=== PATIENT | male | born 1955 | race Caucasian/White ===

== ENCOUNTER 2024-09-20 10:41 | Observation (INO) | payer MEDICARE, SELFPAY ==
[2024-09-20] VITALS (22 sets, daily range): BP systolic 130–190; BP diastolic 64–97; PULSE 53–63; RESP 17–23; TEMP 36.5–36.7; O2SAT 94–99; BMI 32.1
--- NOTE | 2024-09-20 10:44 | DI.RAD.S_ITS ---
PROCEDURE: XR CHEST 1V INDICATIONS: Possible stroke TECHNIQUE: One view of the chest was acquired. COMPARISON: None. FINDINGS: Surgical changes and devices: None. Lungs and pleura: Lungs are clear. No pleural effusions or pneumothorax. Mediastinum: Mediastinal contours appear normal. Heart size is normal. Bones and chest wall: No suspicious bony lesions. Overlying soft tissues appear unremarkable. IMPRESSION: No acute cardiopulmonary abnormality is seen. Dictated by: Boris Pina M.D. on 09/20/2024 at 11:08 Approved by: Boris Pina M.D. on 09/20/2024 at 11:09
--- NOTE | 2024-09-20 10:44 | DI.CT.S_ITS ---
PROCEDURE: CT HEAD/BRAIN WO CON INDICATIONS: Positive BE-FAST, Stroke symptoms. Right sided weakness. TECHNIQUE: Noncontrast 4.5 mm thick angled axial sections acquired from the foramen magnum to the vertex, with coronal and sagittal reformats. For radiation dose reduction, the following was used: automated exposure control, adjustment of mA and/or kV according to patient size. COMPARISON: None. FINDINGS: Image quality: Diagnostic. CSF spaces: Basal cisterns are patent. No extra-axial fluid collections. The ventricles are symmetric in size and shape. Brain: Low-density area within the right frontal lobe. No intracranial bleeds or masses. There is cerebral volume loss for age, with resultant ventricular and sulcal prominence. There are periventricular and deep white matter chronic small vessel ischemic changes. There is intracranial internal carotid artery atherosclerosis. Skull and face: Calvarium and visualized facial bones appear intact, without suspicious lesions. Sinuses: Visualized sinuses and mastoids are clear. IMPRESSION: Low-density area within the right frontal lobe, subacute infarct is in the differential. Recommend MRI brain for further evaluation. Dictated by: Boris Pina M.D. on 09/20/2024 at 11:06 Approved by: Boris Pina M.D. on 09/20/2024 at 11:07
--- NOTE | 2024-09-20 10:51 | DI.CT.S_ITS ---
PROCEDURE: CT ANGIO HEAD AND NECK INDICATIONS: r/o stroke TECHNIQUE: After the administration of intravenous contrast, 1 mm thick sections acquired from the aortic arch through the [place]. 3-dimensional mxkenle-frexkncfh-ddgjkypide (MIP) and/or volume rendering reformats were acquired of the central intracranial vasculature and neck separately. For radiation dose reduction, the following was used: automated exposure control, adjustment of mA and/or kV according to patient size. COMPARISON: None. FINDINGS: Image quality: Diagnostic. BRAIN: Please refer to same day CT of the head. HEAD CT ANGIOGRAPHY: Anterior circulation: Intracranial internal carotid arteries are normal in size and flow. The flow within the paired anterior cerebral arteries is normal and symmetric. The flow within the middle cerebral arteries is normal and symmetric. The anterior communicating artery is seen. No aneurysms are seen. Posterior circulation: Visualized portions of the vertebral arteries demonstrate normal caliber with a dominant left vertebral artery, and join to form a normal appearing basilar artery. origin of the right BUYER RENTER. Flow within the posterior cerebral arteries is normal and symmetric. No aneurysms are seen. NECK CT ANGIOGRAPHY: Carotid system: The great vessels demonstrate a conventional anatomy as they arise from the aortic arch. The origins of the common carotid arteries appear patent. The common carotid arteries demonstrate normal caliber and courses. The bifurcation regions demonstrate atherosclerosis without significant stenosis. The internal carotid arteries demonstrate normal calibers and courses. Posterior circulation: Mild stenosis at the origin of the left vertebral artery. The left vertebral artery is dominant The more superior extracranial portions of both vertebral arteries also demonstrate normal courses. They join to form a normal appearing basilar artery. Soft tissues: Visualized neck soft tissues demonstrate no suspicious abnormalities. Bones: No suspicious bony lesions. Visualized cervical spine appears normally aligned. Degenerative changes of the spine. IMPRESSION: No significant intracranial arterial abnormality is seen. No significant abnormality is seen within the arteries of the neck. Any quantitative measurements of stenosis were performed using NASCET criteria. Dictated by: Boris Pina M.D. on 09/20/2024 at 12:04 Approved by: Boris Pina M.D. on 09/20/2024 at 12:10
--- NOTE | 2024-09-20 11:13 | PC.NURSE ---
Right hand pinky numbness/tingling that has now progressed up to his lip. No PRADO, vision changes, etc per pt. Pt ambulatory w/o assistance. GCS 15.
[2024-09-20 11:23] LABS: Basophils Absolute Auto 100 /uL (0-100); Basophils Percent Auto 1.6 % (0-2); Eosinophils Absolute Auto 100 /uL (0-450); Eosinophils Percent Auto 1.4 % (2-4); Hematocrit 43.9 % (41-53); Hemoglobin 14.8 g/dL (13.5-17.5); Lymphocytes Absolute Auto 2700 /uL (1100-4500); Lymphocytes Percent Auto 31.6 % (25-40); Mean Corpuscular HGB Conc 33.8 % (30-36); Mean Corpuscular Hemoglobin 30.2 PG (26-34); Mean Corpuscular Volume 89.5 fL (80-100); Monocytes Absolute Auto 600 /uL (0-900); Monocytes Percent Auto 6.8 % (3-14); Neutrophils Absolute Auto 5000 /uL (1500-7000); Neutrophils Percent Auto 58.6 % (50-75); Red Blood Cell Count 4.91 X10^6/uL (4.5-5.9); Red Cell Distribution Width 13.2 % (11.6-14.8); White Blood Cell Count 8.5 X10^3/uL (4.5-11.0)
[2024-09-20 11:24] LABS: Add Manual Diff / Slide Review SLIDE REVIEW
[2024-09-20 11:29] LABS: UR Morphine/Opiate cutoff 300 Negative (Negative); Ur Creatinine Normal (Normal); Ur Specific Gravity Normal (Normal); Urine Amphetamines Negative (Negative); Urine Barbiturates Negative (Negative); Urine Benzodiazepines Negative (Negative); Urine Cocaine Negative (Negative); Urine MDMA Negative (Negative); Urine Methadone Negative (Negative); Urine Methamphetamines Negative (Negative); Urine Oxycodone Negative (Negative); Urine Phencyclidine Negative (Negative); Urine Tetrahydrocannabinol Positive (Negative); Urine Tricyclic Antidepressant Negative (Negative); Urine pH Normal (Normal)
[2024-09-20 11:38] LABS: Platelet Count 193 X10^3/uL (150-400); Platelet Estimate Adequate on smear
--- NOTE | 2024-09-20 11:46 | EKG_ITS ---
[address] [address] Test Date: 2024-09-20 Pat Name: Trev Tiwari Department: 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
[2024-09-20 11:47] LABS: Bacteria Urine Many (>30); Culture Indicated Urine Specimen Cultured; RBC Urine 0-1/HPF (0-5/HPF); Squamous Epithelial Cell Urine 0-1 /HPF (0-5/HPF); Urine Volume 10mL (spun); WBC Urine 5-10/HPF (0-5/HPF)
[2024-09-20 12:01] LABS: Alanine Aminotransferase 28 IU/L (<50); Albumin 4.7 g/dL (3.5-5.0); Albumin Globulin Ratio 1.5 (1.0-2.8); Alkaline Phosphatase 76 U/L (38-126); Aspartate Aminotransferase 35 IU/L (17-59); Bilirubin Total 0.6 mg/dL (0.2-1.3); Blood Urea Nitrogen 18 mg/dL (9-20); Calcium 9.7 mg/dL (8.4-10.2); Carbon Dioxide 20 mmol/L (22-32); Chloride 108 mmol/L (98-107); Creatine Kinase 96 U/L (55-170); Estimated Glomerular Filt Rate > 60 mL/min (>60); Globulin 3.2 g/dL (1.7-4.1); Glucose 93 mg/dL (80-110); HEMOLYSIS < 15 (0-50); Magnesium 1.8 mg/dL (1.6-2.3); Potassium 4.1 mmol/L (3.4-5.1); Sodium 138 mmol/L (137-145); Total Protein 7.9 g/dL (6.3-8.2)
[2024-09-20 12:13] LABS: Troponin I < 0.012 ng/mL (0.01-0.034)
[2024-09-20 12:29] LABS: Prothrombin Time 11.1 SECONDS (9.4-12.5)
[2024-09-20 12:32] LABS: PTT Partial Thromboplastin Tim 33 SECONDS (25.1-36.5)
--- NOTE | 2024-09-20 13:44 | PC.NURSE ---
This RN checks on patient. He reports numbness and tingling to his RIGHT side of lip is subsiding as is some of the numbness/tingling to his RIGHT arm. However, Pt reports it is the same in his RIGHT three fingers (middle, ring and pinky). Pt describes them as feeling tight. Pt has multiple family members in room. Encouraged him to call if any changes or if family notices any changes. Call light within reach.
--- NOTE | 2024-09-20 14:10 | PC.NURSE ---
Family at bedside states patient is slurring his words. Friend at bedside said he noticed this yesterday while with him too.
--- NOTE | 2024-09-20 14:40 | PC.NURSE ---
Pt family reports increased slurring in speech. This RN does not currently appreciate a distinct difference in his speech pattern from prior. Speech is clear and coherent to this RN. Provider Fletcher made aware of patient family concerns.
--- NOTE | 2024-09-20 16:02 | ED_ITS ---
HPI - Neuro Symptoms/Deficit General Chief Complaint: Neuro Symptoms/Deficit Stated Complaint: R side numbness Time Seen by Provider: 09/20/24 15:06 Source: patient, EMS, RN notes reviewed and old records reviewed Mode of arrival: EMS Limitations: no limitations History of Present Illness HPI Narrative: 69-year-old male history of right partial nephrectomy for cancer, chronic tobacco use who presents with complaint of right hand numbness that was present yesterday morning when he woke up was extending up the arm has now localized more to the hand but is still present. He also noticed some right-sided facial numbness and tingling. States that has also improved. His brother notes a little bit change to his speech patient does not appreciate a change. Denies headache, denies any chest pain or shortness of breath. Denies any vision changes. Denies any issues with movement or gait. Does not appreciate a lot of supervisor intermediates or weakness in his extremity. Patient denies any nausea or vomiting. No other GI or urinary symptoms. States no daily medications. Has been told his cholesterol was high in the past. Has had a right partial nephrectomy for what sounds like renal cell carcinoma in 2017. Patient does smoke about pack daily, states no regular alcohol, does use marijuana denies any other recreational drugs[place] He is accompanied by several family members On Anticoagulants: No Related Data Home Medications Medication Instructions Recorded Confirmed No Known Home Medications 09/20/24 Allergies Allergy/AdvReac Type Severity Reaction Status Date / Time hydromorphone [From Dilaudid] Allergy Intermediate Verified 09/20/24 09:32 Review of Systems Review of Systems ROS Unobtainable: All systems reviewed & are unremarkable except as noted in HPI and below Hematologic/Lymphatic On Anticoagulants: No Patient History Social History Smoking Status: Current every day smoker Smoking Status: Current every day smoker alcohol intake frequency: other Substance Use Type: marijuana Exam Narrative Exam Narrative: GEN: well nourished, well appearing male, alert and oriented x 3, patient appears to be in mild distress. HEENT: Atraumatic, pupils are equal round reactive to light, extraocular movements are intact, nares are clear, TMs are clear with no fluid, there is no conjunctival pallor. Throat is clear without any exudates, erythema, tonsillar enlargement or uvular deviation, no facial droop HEART: Regular rate and rhythm without murmur, clicks, rubs. No carotid bruits, pulses are equal in upper and lower extremities LUNGS:Lungs clear to auscultation, no wheezes, rales, crackles, chest moves symmetrically ABD:bowel sounds normal, soft, non-tender, no guarding, rebound, rigidity, no masses noted, no hepatosplenomegaly :No CVA tenderness MSCL: Non-tender, no muscle atrophy, muscles strength 5/5 upper and lower extremities, full range of motion, normal gait NEURO:CN 2-12 intact, sensation normal except for decreased sensation right hand compared to left, reflexes 2/4 upper and lower extremities. finger nose finger test normal, heel frank test normal. Initial Vital Signs Initial Vital Signs: Vital Signs Pulse Rate 62 09/20/24 10:47 Pulse Oximetry 98 09/20/24 10:47 Scores NIH Stroke Scale Level of Conciousness: Alert, keenly responsive Ask month/age: Answers both questions correctly. Open/close eyes, close hand: Performs both tasks correctly Best gaze horizontal: Normal Visual whittaker: No visual loss Facial palsy: Normal symetrical movement Left arm drift: No drift for full 10 sec Right arm drift: No drift for full 10 sec Left leg drift: No drift for full 5 sec Right leg drift: No drift for full 5 sec Limb ataxia: Absent Sensory on face/arms/legs: Mild to moderate sensory loss, can tell touch Best language: No aphasia, normal Dysarthria: Normal Extinction or inattention: No abnormality Total NIH Stroke scale score: 1 Course Orders Ordered: ED Orders 09/20/24 10:44 CT head/brain wo con Stat XR chest 1V Stat EKG-12 Lead Stat 09/20/24 10:51 CT angio head and neck Stat 09/20/24 11:02 Complete Blood Count AUTO DIFF Stat 09/20/24 11:16 Urine Culture Stat Urine Drug Screen, Rapid Stat Urine Microscopic Stat 09/20/24 11:33 Comprehensive Metabolic Panel Stat Magnesium Stat Troponin & CK Cardiac Panel Stat 09/20/24 12:15 PTT Partial Thromboplastin Les Stat Prothrombin Time INR Stat 09/20/24 16:42 MR head/brain wo con Stat Ondansetron HCl (Ondansetron 4 Mg/2 Ml Inj) 4 mg IV NOW PRN PRN Reason: Nausea And Vomiting Ondansetron HCl (Ondansetron 4 Mg Odt) 4 mg SL NOW PRN PRN Reason: Nausea And Vomiting Sodium Chloride (Sodium Chloride 0.9% Flush) 10 ml IV PRN PRN PRN Reason: Flush Sodium Chloride (Sodium Chloride 0.9% Flush) 10 ml IV BID ELIZABETH Discontinued Medications Aspirin (Aspirin 81 Mg Chew Tab) 324 mg PO NOW ONE Stop: 09/20/24 16:37 Last Admin: 09/20/24 16:47 Dose: 324 mg Documented By: CARMEN Vital Signs Vital signs: Vital Signs - 8 hr 09/20/24 10:47 09/20/24 10:48 09/20/24 10:48 Temperature Pulse Rate 62 58 L Respiratory Rate Blood Pressure 190/84 H Pulse Oximetry 98 97 Oxygen Delivery Method 09/20/24 10:50 09/20/24 11:00 09/20/24 11:30 Temperature 98.0 F Pulse Rate 56 L 59 L 61 Respiratory Rate 18 Blood Pressure 190/84 H Pulse Oximetry 98 98 96 Oxygen Delivery Method Room Air 09/20/24 11:43 09/20/24 11:43 09/20/24 12:00 Temperature Pulse Rate 54 L 58 L Respiratory Rate 19 18 Blood Pressure 146/68 H Pulse Oximetry 99 99 Oxygen Delivery Method 09/20/24 12:30 09/20/24 13:00 09/20/24 13:30 Temperature Pulse Rate 60 57 L 62 Respiratory Rate 17 Blood Pressure Pulse Oximetry 97 99 95 Oxygen Delivery Method 09/20/24 13:43 09/20/24 13:43 09/20/24 14:00 Temperature Pulse Rate 62 Respiratory Rate 20 Blood Pressure 179/90 H 157/86 H Pulse Oximetry 98 Oxygen Delivery Method Room Air 09/20/24 14:00 09/20/24 14:30 09/20/24 14:33 Temperature Pulse Rate 61 60 62 Respiratory Rate 21 23 Blood Pressure Pulse Oximetry 96 99 98 Oxygen Delivery Method Room Air 09/20/24 14:33 09/20/24 15:00 09/20/24 15:00 Temperature Pulse Rate 55 L Respiratory Rate 17 Blood Pressure 171/87 H 146/70 H Pulse Oximetry 97 Oxygen Delivery Method 09/20/24 15:30 09/20/24 15:30 09/20/24 16:00 Temperature Pulse Rate 53 L Respiratory Rate 17 Blood Pressure 163/77 H 144/78 H Pulse Oximetry 96 Oxygen Delivery Method 09/20/24 16:00 09/20/24 16:30 09/20/24 16:31 Temperature Pulse Rate 60 60 61 Respiratory Rate 19 18 23 Blood Pressure Pulse Oximetry 95 94 94 Oxygen Delivery Method 09/20/24 16:31 09/20/24 16:38 09/20/24 16:38 Temperature Pulse Rate 63 Respiratory Rate 18 Blood Pressure 164/87 H 162/97 H Pulse Oximetry 97 Oxygen Delivery Method MDM - Neuro Symptoms/Deficit Lab Data 09/20/24 11:02 09/20/24 11:33 Labs: Lab Results 09/20/24 09/20/24 09/20/24 Range/Units 11:02 11:16 11:33 WBC 8.5 (4.5-11.0) X10^3/uL RBC 4.91 (4.5-5.9) X10^6/uL Hgb 14.8 (13.5-17.5) g/dL Hct 43.9 (41-53) % MCV 89.5 (80-100) fL MCH 30.2 (26-34) PG MCHC 33.8 (30-36) % RDW 13.2 (11.6-14.8) % Plt Count 193 (150-400) X10^3/uL Neut % (Auto) 58.6 (50-75) % Lymph % (Auto) 31.6 (25-40) % [place] % (Auto) 6.8 (3-14) % Eos % (Auto) 1.4 L (2-4) % Baso % (Auto) 1.6 (0-2) % Neut # (Auto) 5000 (2992-0201) /uL Lymph # (Auto) 2700 (0979-3488) /uL [place] # (Auto) 600 (0-900) /uL Eos # (Auto) 100 (0-450) /uL Baso # (Auto) 100 (0-100) /uL Platelet Estimate Adequate on smear RBC Morphology Not Reportable PT (9.4-12.5) SECONDS INR (0.9-1.3) APTT (25.1-36.5) SECONDS Sodium 138 (137-145) mmol/L Potassium 4.1 (3.4-5.1) mmol/L Chloride 108 H (98-107) mmol/L Carbon Dioxide 20 L (22-32) mmol/L BUN 18 (9-20) mg/dL Creatinine 0.82 (0.66-1.25) mg/dL Estimated GFR > 60 (>60) mL/min BUN/Creatinine Ratio 22.0 (6-22) Glucose 93 (80-110) mg/dL Calcium 9.7 (8.4-10.2) mg/dL Magnesium 1.8 (1.6-2.3) mg/dL Total Bilirubin 0.6 (0.2-1.3) mg/dL AST 35 (17-59) IU/L ALT 28 (<50) IU/L Alkaline Phosphatase 76 (38-126) U/L Total Creatine Kinase 96 (55-170) U/L Troponin I < 0.012 (0.01-0.034) ng/mL Total Protein 7.9 (6.3-8.2) g/dL Albumin 4.7 (3.5-5.0) g/dL Globulin 3.2 (1.7-4.1) g/dL Albumin/Globulin Ratio 1.5 (1.0-2.8) Urine RBC 0-1/hpf (0-5/HPF) Urine WBC 5-10/hpf H (0-5/HPF) Ur Squamous Epith Cells 0-1 /hpf (0-5/HPF) Urine Bacteria Many (>30) H (None) Ur Culture Indicated? Specimen cultured Vol Urine Centrifuged 10ml (spun) U Opiates 300ng/mL cut Negative (Negative) Ur Oxycodone Screen Negative (Negative) Urine Methadone Screen Negative (Negative) Ur Barbiturates Screen Negative (Negative) U Tricyclic Antidepress Negative (Negative) Ur Phencyclidine Scrn Negative (Negative) Ur Amphetamines Screen Negative (Negative) U Methamphetamines Scrn Negative (Negative) Ur MDMA Scrn (Ecstasy) Negative (Negative) U Benzodiazepines Scrn Negative (Negative) Urine Cocaine Screen Negative (Negative) U Marijuana (THC) Screen Positive H (Negative) Urine pH Normal (Normal) Urine Specific George Normal (Normal) Ur Creatinine Normal (Normal) 09/20/24 Range/Units 12:15 WBC (4.5-11.0) X10^3/uL RBC (4.5-5.9) X10^6/uL Hgb (13.5-17.5) g/dL Hct (41-53) % MCV (80-100) fL MCH (26-34) PG MCHC (30-36) % RDW (11.6-14.8) % Plt Count (150-400) X10^3/uL Neut % (Auto) (50-75) % Lymph % (Auto) (25-40) % [place] % (Auto) (3-14) % Eos % (Auto) (2-4) % Baso % (Auto) (0-2) % Neut # (Auto) (5468-4271) /uL Lymph # (Auto) (6414-4021) /uL [place] # (Auto) (0-900) /uL Eos # (Auto) (0-450) /uL Baso # (Auto) (0-100) /uL Platelet Estimate RBC Morphology PT 11.1 (9.4-12.5) SECONDS INR 1.0 (0.9-1.3) APTT 33 (25.1-36.5) SECONDS Sodium (137-145) mmol/L Potassium (3.4-5.1) mmol/L Chloride (98-107) mmol/L Carbon Dioxide (22-32) mmol/L BUN (9-20) mg/dL Creatinine (0.66-1.25) mg/dL Estimated GFR (>60) mL/min BUN/Creatinine Ratio (6-22) Glucose (80-110) mg/dL Calcium (8.4-10.2) mg/dL Magnesium (1.6-2.3) mg/dL Total Bilirubin (0.2-1.3) mg/dL AST (17-59) IU/L ALT (<50) IU/L Alkaline Phosphatase (38-126) U/L Total Creatine Kinase (55-170) U/L Troponin I (0.01-0.034) ng/mL Total Protein (6.3-8.2) g/dL Albumin (3.5-5.0) g/dL Globulin (1.7-4.1) g/dL Albumin/Globulin Ratio (1.0-2.8) Urine RBC (0-5/HPF) Urine WBC (0-5/HPF) Ur Squamous Epith Cells (0-5/HPF) Urine Bacteria (None) Ur Culture Indicated? Vol Urine Centrifuged U Opiates 300ng/mL cut (Negative) Ur Oxycodone Screen (Negative) Urine Methadone Screen (Negative) Ur Barbiturates Screen (Negative) U Tricyclic Antidepress (Negative) Ur Phencyclidine Scrn (Negative) Ur Amphetamines Screen (Negative) U Methamphetamines Scrn (Negative) Ur MDMA Scrn (Ecstasy) (Negative) U Benzodiazepines Scrn (Negative) Urine Cocaine Screen (Negative) U Marijuana (THC) Screen (Negative) Urine pH (Normal) Urine Specific George (Normal) Ur Creatinine (Normal) Point of Care Testing Glucose POC 94 Urine Dip Bedside Urine Glucose Negative Bedside Urine Bilirubin - Negative Bedside Urine Ketone - Negative Urine Specific George 1.005 Bedside Urine Occult Blood - Negative Bedside Urine pH 6.5 Bedside Urine Protein - Negative Bedside Urine Urobilinogen - Negative Bedside Urine Nitrite + Positive Bedside Urine Leukocytes +/- [address] scan - head: Radiologist's Impression: [address] [address] [address] Scan Report Signed Patient: Trev Tiwari MR#: [id number] : 1955 Acct:[id number] Age/Sex: 69 / M Date of Service: 09/20/24 Loc: ED Accession Number: [id number] Procedure: CT head/brain wo con Ordering Provider: Kimberly Bynum D.O. PROCEDURE: CT HEAD/BRAIN WO CON INDICATIONS: Positive BE-FAST, Stroke symptoms. Right sided weakness. TECHNIQUE: Noncontrast 4.5 mm thick angled axial sections acquired from the foramen magnum to the vertex, with coronal and sagittal reformats. For radiation dose reduction, the following was used: automated exposure control, adjustment of mA and/or kV according to patient size. COMPARISON: None. FINDINGS: Image quality: Diagnostic. CSF spaces: Basal cisterns are patent. No extra-axial fluid collections. The ventricles are symmetric in size and shape. Brain: Low-density area within the right frontal lobe. No intracranial bleeds or masses. There is cerebral volume loss for age, with resultant ventricular and sulcal prominence. There are periventricular and deep white matter chronic small vessel ischemic changes. There is intracranial internal carotid artery atherosclerosis. Skull and face: Calvarium and visualized facial bones appear intact, without suspicious lesions. Sinuses: Visualized sinuses and mastoids are clear. IMPRESSION: Low-density area within the right frontal lobe, subacute infarct is in the differential. Recommend MRI brain for further evaluation. Dictated by: Boris Pina M.D. on 09/20/2024 at 11:06 Approved by: Boris Pina M.D. on 09/20/2024 at 11:07 CTA - brain/neck: Radiologist's Impression: Trev Tiwari??69??M??1955 ? Allergy/Adv: hydromorphone Close Head/Neck CTA (Signed) Boris Pina 09/20/[address] (Signed) Boris Pina 09/20/24 Chest X-Ray (Signed) Silvana09/20/24 [place] [address] CT Scan Report Signed Patient: Trev Tiwari MR#: [id number] : 1955 Acct:[id number] Age/Sex: 69 / M Date of Service: 09/20/24 Loc: ED Accession Number: [id number] Procedure: CT angio head and neck Ordering Provider: Kimberly Bynum D.O. PROCEDURE: CT ANGIO HEAD AND NECK INDICATIONS: r/o stroke TECHNIQUE: After the administration of intravenous contrast, 1 mm thick sections acquired from the aortic arch through the [place] of [place]. 3-dimensional maifgxk-xocmnpklb-ewoykxbqai (MIP) and/or volume rendering reformats were acquired of the central intracranial vasculature and neck separately. For radiation dose reduction, the following was used: automated exposure control, adjustment of mA and/or kV according to patient size. COMPARISON: None. FINDINGS: Image quality: Diagnostic. BRAIN: Please refer to same day CT of the head. HEAD CT ANGIOGRAPHY: Anterior circulation: Intracranial internal carotid arteries are normal in size and flow. The flow within the paired anterior cerebral arteries is normal and symmetric. The flow within the middle cerebral arteries is normal and symmetric. The anterior communicating artery is seen. No aneurysms are seen. Posterior circulation: Visualized portions of the vertebral arteries demonstrate normal caliber with a dominant left vertebral artery, and join to form a normal appearing basilar artery. origin of the right ENTRY LEVEL FINANCE. Flow within the posterior cerebral arteries is normal and symmetric. No aneurysms are seen. NECK CT ANGIOGRAPHY: Carotid system: The great vessels demonstrate a conventional anatomy as they arise from the aortic arch. The origins of the common carotid arteries appear patent. The common carotid arteries demonstrate normal caliber and courses. The bifurcation regions demonstrate atherosclerosis without significant stenosis. The internal carotid arteries demonstrate normal calibers and courses. Posterior circulation: Mild stenosis at the origin of the left vertebral artery. The left vertebral artery is dominant The more superior extracranial portions of both vertebral arteries also demonstrate normal courses. They join to form a normal appearing basilar artery. Soft tissues: Visualized neck soft tissues demonstrate no suspicious abnormalities. Bones: No suspicious bony lesions. Visualized cervical spine appears normally aligned. Degenerative changes of the spine. IMPRESSION: No significant intracranial arterial abnormality is seen. No significant abnormality is seen within the arteries of the neck. Any quantitative measurements of stenosis were performed using NASCET criteria. Dictated by: Boris Pina M.D. on 09/20/2024 at 12:04 Approved by: Boris Pina M.D. on 09/20/2024 at 12:10 Chest x-ray: Radiologist's Impression: [place] [address] XRay Report Signed Patient: Trev Tiwari MR#: [id number] : 1955 Acct:[id number] Age/Sex: 69 / M Date of Service: 09/20/24 Loc: ED Accession Number: [id number] Procedure: XR chest 1V Ordering Provider: Kimberly Bynum D.O. PROCEDURE: XR CHEST 1V INDICATIONS: Possible stroke TECHNIQUE: One view of the chest was acquired. COMPARISON: None. FINDINGS: Surgical changes and devices: None. Lungs and pleura: Lungs are clear. No pleural effusions or pneumothorax. Mediastinum: Mediastinal contours appear normal. Heart size is normal. Bones and chest wall: No suspicious bony lesions. Overlying soft tissues appear unremarkable. IMPRESSION: No acute cardiopulmonary abnormality is seen. Dictated by: Boris Pina M.D. on 09/20/2024 at 11:08 Approved by: Boris iPna M.D. on 09/20/2024 at 11:09 ECG Data Attestation: I personally reviewed and interpreted this ECG as follows: Interpretation: Sinus bradycardia rate of 56 MS 186 QRS 86 QTC of 386, T-wave inverted in lead 3 but no other acute ST changes. MDM Narrative Medical decision making narrative: 69-year-old male at 9:00 a.m. yesterday upon awakening had right numbness of his upper extremity continued for the past 24 hours and moved to his right lip. Did not note a little bit of facial droop at some point per transport. Patient has not NIH of 1 with persistent symptoms since yesterday. Patient was not candidate for anticoagulation is had greater than 24 hours of symptoms prior to arrival. Head CT shows possible subacute infarct in the right frontal lobe Head and neck CT angio shows no significant intracranial abnormality or of the arteries of the neck. Chest x-ray shows no acute change EKG shows sinus bradycardia CBC is normal, coags are negative, electrolytes are appropriate chloride 108 CO2 is 20 BUN 18 with a creatinine of 0.82 Mag is 1.8 LFTs are negative troponins less than 0.012 Urine micro 5-10 white cells, many bacteria 1 squamous, 1 RBC. UDS is positive for marijuana Patient given aspirin [address] De La Cruz, hospitalist accepts for observation. Patient has changes possible subacute infarct right frontal lobe although patient's symptoms are his right hand and cheek although hand dizzy only current symptom. Stroke Core Measures Exclusion Criteria TPA in CVA: Symptom Onset >3 or 4.5 Hours Discharge Plan Departure Patient Disposition: Admitted as Observation Clinical Impression: Cerebrovascular accident Admit Date/Time: 09/20/24 16:42 Admit Provider: Roshan De La Cruz
[2024-09-20] MEDS: ASPIRIN 81 MG CHEW TAB 324 MG PO (16:47)
--- NOTE | 2024-09-20 17:31 | PC.NURSE ---
Patient arrived to room 219 from ER via wheelchair. Oriented to room and call light and patient would like to sit in chair for dinner, he is hungry. Reports right hand middle ring and pinky fingers feel tight, sensation is dulled to right arm. Denies sensation changes elsewhere at this time. Patient has multiple family member including his 2 grandsons at the bed side.
--- NOTE | 2024-09-20 18:49 | DI.ECHO.S_ITS ---
[facility] +---------+ [facility] : : [address] : : [place] : : [address] : : Phone: [phone] Echocardiogram Report + + :Name: DONN BALDWIN Study Date: 09/21/2024 Height: 67 in : :[facility] ReadingLocation: Weight: 205 lb : : Gender: Male BSA: 2.0 m2 : :: 1955 Age: 69 yrs BP: 125/66 mmHg: :Reason For Study: CVA : :Ordering Physician: STEPH, : :FARIDA CHAMPAGNE Performed By: Colleen Singer : :Referring: FARIDA CHOI : + + Interpretation Summary Sinus bradycardia with heart rate 51-60 bpm. Borderline dilated left ventricle with normal wall thickness. Normal wall motion and LV systolic function. Ejection fraction is 50-55%. Stage I diastolic dysfunction. Mildly dilated right ventricle with normal right ventricular systolic function. Moderate left atrial enlargement; otherwise normal chamber sizes. Aortic sclerosis without stenosis. Otherwise, no significant valvular abnormalities. PFO evaluation is characterized by technically difficult bubble visualization. No obvious evidence of PFO based on available images. No source of embolism found. No prior study available for comparison. Procedure: A two-dimensional transthoracic echocardiogram with color flow and Doppler was performed. The study quality was technically adequate. There is no prior echocardiogram noted for this patient. The patient was in sinus bradycardia with heart rates between 51-66 bpm during the exam. Left Ventricle: The left ventricle is borderline dilated. The ejection fraction is estimated to be 55-60%. Right Ventricle: The right ventricle is mildly dilated. The right ventricular systolic function is normal. Atria: The left atrium is moderately dilated. Right atrial size is normal. There is no Doppler evidence for an interatrial shunt. Injection of contrast documented no interatrial shunt. Mitral Valve: The mitral valve is normal in structure and function. There is mild mitral regurgitation. Aortic Valve: The aortic valve is trileaflet. The aortic valve opens well. There is no aortic valve stenosis. No aortic regurgitation is present. Tricuspid Valve: The tricuspid valve is normal in structure and function. There is mild tricuspid regurgitation. The right ventricular systolic pressure is estimated to be at least 29 mmHg based on an estimated right atrial pressure of 3 mm Hg. Pulmonic Valve: The pulmonic valve leaflets are thin and pliable; valve motion is normal. There is no pulmonic valvular regurgitation. Great Vessels: The aortic root is normal size. The dimensions of the ascending aorta are normal. The IVC is of normal diameter and collapses greater than 50% with a sniff. This suggests a low right atrial pressure of 3 mm Hg. Pericardium/ Pleura There is no pericardial effusion. There is no pleural effusion. MMode/2D Measurements & Calculations LVIDd: 6.2 cm LVOT diam: 2.0 cm LVIDs: 4.4 cm Ao root diam: 3.5 cm FS: 29.1 % asc Aorta Diam: 3.3 cm EPSS: 0.60 cm IVSd: 0.81 cm LVPWd: 0.90 cm LV black. diameter/BSA (cm/m^2): 3.1 LV sys. diameter/BSA (cm/m^2): 2.2 LA A2 area: 28.2 cm2 RA long axis: 5.0 cm LA A4 area: 19.2 cm2 RA area: 18.5 cm2 LA length (vol): 5.2 cm RA vol: 58.6 ml LA vol: 88.7 ml RA : 28.7 ml/m2 LA vol index: 43.4 ml/m2 IVC diam: 2.0 cm RVD1 (basal): 4.0 cm RVD2 (mid): 3.5 cm TAPSE: 2.1 cm Doppler Measurements & Calculations Ao V2 max: 199.8 cm/sec LVOT Max Sunny: 111.5 cm/sec Ao V2 mean: 132.3 cm/sec LV V1 max P.0 mmHg Ao max P.0 mmHg LV V1 VTI: 24.8 cm Ao mean P.9 mmHg MARYANNE(I,D): 1.8 cm2 Ao V2 VTI: 43.8 cm MARYANNE(V,D): 1.7 cm2 sev ratio: 0.57 MARYANNE indexed to BSA (cm^2/m^2): 0.86 MV E max sunny: 70.5 cm/sec TR max sunny: 253.1 cm/sec MV A max sunny: 93.9 cm/sec TR max P.6 mmHg MV E/A: 0.75 PA V2 max: 135.2 cm/sec Med Peak E' Sunny: 8.5 cm/sec PA V2 mean: 99.4 cm/sec E/E' med: 8.3 PA mean P.3 mmHg Lat Peak E' Sunny: 9.2 cm/sec PA pr(Accel): 25.9 mmHg E/E' lat: 7.7 E/e' average: 8.0 MV dec time: 0.28 sec SV(LVOT): 76.8 ml Electronically signed by: Naheed rivera [place] Physician:09/21/2024 02:28 PM
--- NOTE | 2024-09-20 18:53 | PM.HP.1 ---
History of Present Illness History of Present Illness Date Patient Seen: 09/20/24 Time Patient Seen: 18:53 Chief complaint: R side numbness Narrative: 69 M with no known PMH except for tobacco use presents with R hand and arm numbness starting yesterday morning at approx. 9 am. The numbness started in his R 4th and 5th fingers, then moved to his whole hand and then distal forearm up to the elbow. He reports mild improvement today but now R hand is numb. His son reports that another family member thought his speech may be slurred, though patient did not think so. Son reports no facial asymmetry as does patient. No recent fever, chills, chest pain, rash, palpitations, vision changes, lower extremity numbness / weakness or left arm symptoms. He denies losing any strength in his R arm/hand. He is left handed. He was previously evaluated for carpal tunnel in both hands, denies hand or wrist pain recently. He had trigger finger surgery about 4 years ago. In the ER, he was mildly hypertensive. His labs were unremarkable. UA did show 5-10 wbc and many bacteria, but he denied urinary frequency or dysuria. UDS was positive for marijuana. Patient endorses smoking 1ppd currently. Head CT showed a possible hypodensity in the R frontal lobe, CTA was unremarkable. He was admitted for further evaluation and possible CVA. [facility] Medical History (Updated 09/20/24 @ 21:53 by Roshan De La Cruz DO) Trigger finger of both hands Surgical History (Updated 09/20/24 @ 21:53 by Roshan De La Cruz DO) H/O hand surgery Social History household members: none Smoking Status: Current every day smoker Meds Home Medications and Allergies Home Medications Medication Instructions Recorded Confirmed Type No Known Home Medications 09/20/24 09/20/24 History Allergies Allergy/AdvReac Type Severity Reaction Status Date / Time hydromorphone [From Dilaudid] Allergy Intermediate Verified 09/20/24 09:32 Review of Systems Review of Systems Narrative: All other systems reviewed with the patient and are negative unless otherwise stated. Exam Vital Signs (past 8 hours): - 09/20/24 11:00 09/20/24 11:30 09/20/24 11:43 Pulse Rate 59 L 61 54 L Respiratory Rate 19 Blood Pressure Pulse Oximetry 98 96 99 Oxygen Delivery Method Oxygen Flow Rate 09/20/24 11:43 09/20/24 12:00 09/20/24 12:30 Pulse Rate 58 L 60 Respiratory Rate 18 Blood Pressure 146/68 H Pulse Oximetry 99 97 Oxygen Delivery Method Oxygen Flow Rate 09/20/24 13:00 09/20/24 13:30 09/20/24 13:43 Pulse Rate 57 L 62 Respiratory Rate 17 Blood Pressure 179/90 H Pulse Oximetry 99 95 Oxygen Delivery Method Oxygen Flow Rate 09/20/24 13:43 09/20/24 14:00 09/20/24 14:00 Pulse Rate 62 61 Respiratory Rate 20 21 Blood Pressure 157/86 H Pulse Oximetry 98 96 Oxygen Delivery Method Room Air Room Air Oxygen Flow Rate 09/20/24 14:30 09/20/24 14:33 09/20/24 14:33 Pulse Rate 60 62 Respiratory Rate 23 Blood Pressure 171/87 H Pulse Oximetry 99 98 Oxygen Delivery Method Oxygen Flow Rate 09/20/24 15:00 09/20/24 15:00 09/20/24 15:30 Pulse Rate 55 L Respiratory Rate 17 Blood Pressure 146/70 H 163/77 H Pulse Oximetry 97 Oxygen Delivery Method Oxygen Flow Rate 09/20/24 15:30 09/20/24 16:00 09/20/24 16:00 Pulse Rate 53 L 60 Respiratory Rate 17 19 Blood Pressure 144/78 H Pulse Oximetry 96 95 Oxygen Delivery Method Oxygen Flow Rate 09/20/24 16:30 09/20/24 16:31 09/20/24 16:31 Pulse Rate 60 61 Respiratory Rate 18 23 Blood Pressure 164/87 H Pulse Oximetry 94 94 Oxygen Delivery Method Oxygen Flow Rate 09/20/24 16:38 09/20/24 16:38 09/20/24 17:26 Pulse Rate 63 60 Respiratory Rate 18 18 Blood Pressure 162/97 H 158/76 H Pulse Oximetry 97 97 Oxygen Delivery Method Oxygen Flow Rate 0 Oxygen Delivery Method Room Air Oxygen Flow Rate 0 Narrative Exam Narrative: General:? Patient is well developed and well nourished, in no distress at this time. HEENT:? Normocephalic, atraumatic, extraocular muscles intact, oral pharynx is clear and mucous membranes are moist. Neck: supple and symmetric, trachea is midline, no cervical adenopathy. Negative for JVD Chest:? Normal AP diameter and contour without kyphoscoliosis, no tachypnea, equal chest rise bilaterally. Cardio:?RRR Abdomen: S NT ND. Musculoskeletal:? Muscle strength and tone are equal within normal limits, no deformity. Negative tinel testing on R wrist. No lateral epicondyle tenderness, minimal medial epicondyle tenderness. Extremities: No edema or joint effusions. No cyanosis or clubbing. Skin:? Pale,? Warm to touch,dry and intact without rashes, ulcerations or petechiae.? Neuro:? Alert and orientated x3,? sensation to touch intact in all extremities, no gross deficits noted of cranial nerves. Psych:? Patient has a well-kept appearance, appropriate affect, mental status attitude thought context and judgment are appropriate for age. Objective Labs 09/20/24 11:02 09/20/24 11:33 Labs: Laboratory Results - last 24 hr 09/20/24 09/20/24 09/20/24 11:02 11:16 11:33 WBC 8.5 RBC 4.91 Hgb 14.8 Hct 43.9 MCV 89.5 MCH 30.2 MCHC 33.8 RDW 13.2 Plt Count 193 Neut % (Auto) 58.6 Lymph % (Auto) 31.6 [place] % (Auto) 6.8 Eos % (Auto) 1.4 L Baso % (Auto) 1.6 Neut # (Auto) 5000 Lymph # (Auto) 2700 [place] # (Auto) 600 Eos # (Auto) 100 Baso # (Auto) 100 Platelet Estimate Adequate on smear RBC Morphology Not Reportable PT INR APTT Sodium 138 Potassium 4.1 Chloride 108 H Carbon Dioxide 20 L BUN 18 Creatinine 0.82 Estimated GFR > 60 BUN/Creatinine Ratio 22.0 Glucose 93 Calcium 9.7 Magnesium 1.8 Total Bilirubin 0.6 AST 35 ALT 28 Alkaline Phosphatase 76 Total Creatine Kinase 96 Troponin I < 0.012 Total Protein 7.9 Albumin 4.7 Globulin 3.2 Albumin/Globulin Ratio 1.5 Urine RBC 0-1/hpf Urine WBC 5-10/hpf H Ur Squamous Epith Cells 0-1 /hpf Urine Bacteria Many (>30) H Ur Culture Indicated? Specimen cultured Vol Urine Centrifuged 10ml (spun) U Opiates 300ng/mL cut Negative Ur Oxycodone Screen Negative Urine Methadone Screen Negative Ur Barbiturates Screen Negative U Tricyclic Antidepress Negative Ur Phencyclidine Scrn Negative Ur Amphetamines Screen Negative U Methamphetamines Scrn Negative Ur MDMA Scrn (Ecstasy) Negative U Benzodiazepines Scrn Negative Urine Cocaine Screen Negative U Marijuana (THC) Screen Positive H Urine pH Normal Urine Specific [place] Normal Ur Creatinine Normal 09/20/24 12:15 WBC RBC Hgb Hct MCV MCH MCHC RDW Plt Count Neut % (Auto) Lymph % (Auto) [place] % (Auto) Eos % (Auto) Baso % (Auto) Neut # (Auto) Lymph # (Auto) [place] # (Auto) Eos # (Auto) Baso # (Auto) Platelet Estimate RBC Morphology PT 11.1 INR 1.0 APTT 33 Sodium Potassium Chloride Carbon Dioxide BUN Creatinine Estimated GFR BUN/Creatinine Ratio Glucose Calcium Magnesium Total Bilirubin AST ALT Alkaline Phosphatase Total Creatine Kinase Troponin I Total Protein Albumin Globulin Albumin/Globulin Ratio Urine RBC Urine WBC Ur Squamous Epith Cells Urine Bacteria Ur Culture Indicated? Vol Urine Centrifuged U Opiates 300ng/mL cut Ur Oxycodone Screen Urine Methadone Screen Ur Barbiturates Screen U Tricyclic Antidepress Ur Phencyclidine Scrn Ur Amphetamines Screen U Methamphetamines Scrn Ur MDMA Scrn (Ecstasy) U Benzodiazepines Scrn Urine Cocaine Screen U Marijuana (THC) Screen Urine pH Urine Specific [place] Ur Creatinine Assessment & Plan Assessment & Plan narrative: 1. R hand numbness, possible CVA - differentials include CVA, nerve entrapement distally (from possible carpal tunnel or a lateral/medial epicondylitis) however Tinel testing was negative on exam and only mild tenderness of his medial epicondyle so this seems unlikely. - MRI for further evaluation. Of note CT findings on the R frontal lobe are discordant with current symptomatology (R hand numbness). MRI ordered. CTA did not show any significant carotid disease nor occlusion. - Continue ASA, Plavix given low NIH (of 1). Given asa load in the ER, will order plavix load tonight. - Statin therapy ordered - No need for PT/OT evaluation at this time given presentation. - TSH, A1c, Lipids ordered - Telemetry - Echocardiogram ordered. - allow for permissive HTN, no known history of hypertension. 2. Asymptomatic bacteriuria - no indication for treatment at this time given no reported symptoms. Code: Full, surrogate is patient's son DVT: low risk patient, on asa and plavix as above. I have utilized all available immediate resources to obtain, update, or review the patient's current medications. Dispo: patient admitted under observation status. Likely discharge home tomorrow depending on above evaluation. Additional history obtained via discussions with the ER provider. These discussions contributed to the creation of the above assessment and plan. I have reviewed patient's presenting documentation, labs, and imaging personally. Time-Based Coding :: [TOTAL MINUTES] spent with patient and on the chart (including review of chart, obtaining history, exam, reviewing outside data, placing orders, documenting exam and treatment plan, and counseling patient) on [DATE]. Scores NIHSS Level of Conciousness: Alert, keenly responsive Ask month/age: Answers both questions correctly. Open/close eyes, close hand: Performs both tasks correctly Best gaze horizontal: Normal Visual whittaker: No visual loss Facial palsy: Normal symetrical movement Left arm drift: No drift for full 10 sec Right arm drift: No drift for full 10 sec Left leg drift: No drift for full 5 sec Right leg drift: No drift for full 5 sec Limb ataxia: Absent Sensory on face/arms/legs: Mild to moderate sensory loss, can tell touch Best language: No aphasia, normal Dysarthria: Normal Extinction or inattention: No abnormality Total NIH Stroke scale score: 1
[2024-09-20] MEDS: CLOPIDOGREL 75 MG TABLET 300 MG PO (19:04)
[2024-09-21] VITALS: BP 128/61; PULSE 58; TEMP 36.3; O2SAT 96
[2024-09-21 04:00] VITALS: BP 125/66; PULSE 50; RESP 20; TEMP 36.3; O2SAT 94
[2024-09-21 05:07] LABS: Add Manual Diff / Slide Review NO; Basophils Absolute Auto 0 /uL (0-100); Basophils Percent Auto 0.3 % (0-2); Eosinophils Absolute Auto 100 /uL (0-450); Eosinophils Percent Auto 1.8 % (2-4); Hematocrit 41.5 % (41-53); Hemoglobin 13.9 g/dL (13.5-17.5); Lymphocytes Absolute Auto 2700 /uL (1100-4500); Lymphocytes Percent Auto 34.4 % (25-40); Mean Corpuscular HGB Conc 33.6 % (30-36); Mean Corpuscular Volume 89.2 fL (80-100); Monocytes Absolute Auto 600 /uL (0-900); Monocytes Percent Auto 8.3 % (3-14); Neutrophils Absolute Auto 4300 /uL (1500-7000); Neutrophils Percent Auto 55.2 % (50-75); Platelet Count 160 X10^3/uL (150-400); Red Blood Cell Count 4.65 X10^6/uL (4.5-5.9); Red Cell Distribution Width 13.3 % (11.6-14.8); White Blood Cell Count 7.8 X10^3/uL (4.5-11.0)
[2024-09-21 05:20] LABS: Hemoglobin A1C% w Est Avg Glu 5.4 % (4.0-6.0)
[2024-09-21 05:21] LABS: BUN Creatinine Ratio 21.4 (6-22); Blood Urea Nitrogen 18 mg/dL (9-20); Calcium 9.4 mg/dL (8.4-10.2); Carbon Dioxide 23 mmol/L (22-32); Chloride 107 mmol/L (98-107); Cholesterol 215 mg/dL (140-199); Estimated Glomerular Filt Rate > 60 mL/min (>60); Glucose 101 mg/dL (80-110); HDL Cholesterol 39 mg/dL (40-60); HEMOLYSIS < 15 (0-50); LDL Cholesterol Calculated 162 mg/dL (<100); Magnesium 1.8 mg/dL (1.6-2.3); Potassium 4.1 mmol/L (3.4-5.1); Sodium 136 mmol/L (137-145); Triglycerides 72 mg/dL (35-150)
[2024-09-21 06:52] LABS: TSH w/ Reflex to FT4 3.02 uIU/mL (0.47-4.68)
[2024-09-21 08:00] VITALS: BP 134/70; PULSE 55; RESP 16; TEMP 36.3; O2SAT 96
[2024-09-21] MEDS: CLOPIDOGREL 75 MG TABLET PO (08:12)
[2024-09-21] MEDS: ASPIRIN EC 81 MG TABLET PO (08:12)
[2024-09-21] MEDS: LORazepam 1 MG TABLET PO (08:50)
[2024-09-21 10:00] VITALS: O2SAT 97
--- NOTE | 2024-09-21 11:01 | CM.DANOTE ---
DCP Assessment note Pt is a 69yo M here following right sided numbness and weakness. PCP [facility] and self pay MARBLE SETTER HELPER reviewed EMR. Per RN report, facial dropping resolved, numbness improved. MRI and echo pending. anticipate no obvious CM needs. Per hospitalist in morning rounds, likely dc today following echo/MRI. MARBLE SETTER HELPER met with pt and family in room and introduced self and role. Pt reports being indep at baseline, lives alone in [place]. Planning f/u with PCP and oven baker. eager to dc home. Denies any DCP/CM needs at this time. P: anticipate home later today with family to transport. no identified barriers to safe dc home with OP f/u identified at this time. CM team will continue to follow as needed ARMAAN Post Discharge Planning/Care Management CM Discharge Assessment Start: 09/21/24 10:59 Freq: Status: Active Protocol: Document 09/21/24 10:59 (Rec: 09/21/24 11:01 [id number]) Discharge Planning Assessment Assigned Ball Fringe Machine Operator ARMAAN Marinelli DPOA/Assigned Designee Name pedro Ramos Contact Information [phone] Advance Directives? No History Provided By Patient Prior Living Arrangements House Household Members none Type of transporation used prior to Drives own vehicle admit Independent with ADL's Yes Is patient alert and oriented? Yes Barriers to Discharge No Discharge Plan Home Transportation Arrangement family in POV Referrals Initiated None needed Review Status In Process Please Provide Date Initial DC 09/21/24 Assessment Was Performed Next Review Type Continued Stay Review
[2024-09-21 12:00] VITALS: BP 137/80; PULSE 66; RESP 18; TEMP 36.3; O2SAT 97
[2024-09-21 13:56] VITALS: O2SAT 97
--- NOTE | 2024-09-21 14:18 | PM.DS.1 ---
History of Present Illness History of Present Illness Date Patient Seen: 09/21/24 Time Patient Seen: 14:18 Chief complaint: R side numbness Narrative: 69 M with no known PMH except for tobacco use presents with R hand and arm numbness starting yesterday morning at approx. 9 am. The numbness started in his R 4th and 5th fingers, then moved to his whole hand and then distal forearm up to the elbow. He reports mild improvement today but now R hand is numb. His son reports that another family member thought his speech may be slurred, though patient did not think so. Son reports no facial asymmetry as does patient. No recent fever, chills, chest pain, rash, palpitations, vision changes, lower extremity numbness / weakness or left arm symptoms. He denies losing any strength in his R arm/hand. He is left handed. He was previously evaluated for carpal tunnel in both hands, denies hand or wrist pain recently. He had trigger finger surgery about 4 years ago. In the ER, he was mildly hypertensive. His labs were unremarkable. UA did show 5-10 wbc and many bacteria, but he denied urinary frequency or dysuria. UDS was positive for marijuana. Patient endorses smoking 1ppd currently. Head CT showed a possible hypodensity in the R frontal lobe, CTA was unremarkable. He was admitted for further evaluation and possible CVA. Discharge Providers Provider Date of admission: 09/20/24 16:42 Discharge Date: 09/21/24 Primary care physician: Elvia An PA-C Discharge provider: Roshan De La Cruz DO Summary Hospital Course Discharge Diagnosis: 1. CVA, acute, present on admission. 2. Asymptomatic bacteriuria 3. Tobacco use Hospital Course: This is a 69 year old male, smoker, but no other known PMH who was admitted with R hand numbness that started the day prior to admission. MRI did show bilateral acute to subacute infarcts, highly suggestive of an embolic source. TTE was unremarkable with no PFO or atrial clot, telemetry showed no atrial fibrillation. He had no other weakness on exam, and had slight improvement in numbness the following morning so no therapy assessments were deemed necessary. He was ambulating in his room unassisted at the time of discharge. TSH, A1c were unremarkable. He had elevated lipid profile. Given MRI findings he was started on statin therapy. He stated he did take a baby aspirin prior to his stroke daily, so it is recommended he take aspirin and plavix for 21 days at discharge, followed by plavix indefinitely unless during outpatient evaluation atrial fibrillation is discovered. Recommend prompt PCP follow up at discharge with recommendation for holter monitor given his MRI findings which are consistent with an embolic source. He was also encouraged to look into a smart watch with rhythm tracking capabilities. UA was positive on admission, however he had no urinary symptoms and this is a presumed asymptomatic bacteriuria which was not treated. He was counseled on smoking cessation, and he was motivated to stop, he did not request any resources from this provider at the time of discharge. Time Spent with Patient Time spent: Greater than 30 minutes Exam Vital Signs (past 8 hours): - 09/21/24 08:00 09/21/24 10:00 09/21/24 12:00 Temperature 97.4 F L 97.3 F L Pulse Rate 55 L 66 Respiratory Rate 16 18 Blood Pressure 134/70 137/80 Pulse Oximetry 96 97 97 Oxygen Delivery Method Room Air Oxygen Flow Rate 0 0 0 09/21/24 13:56 Temperature Pulse Rate Respiratory Rate Blood Pressure Pulse Oximetry 97 Oxygen Delivery Method Room Air Oxygen Flow Rate 0 Oxygen Delivery Method Room Air Oxygen Flow Rate 0 Narrative Exam Narrative: General:? Patient is well developed and well nourished, in no distress at this time. HEENT:? Normocephalic, atraumatic, extraocular muscles intact, oral pharynx is clear and mucous membranes are moist. Neck: supple and symmetric, trachea is midline, no cervical adenopathy. Negative for JVD Chest:? Normal AP diameter and contour without kyphoscoliosis, no tachypnea, equal chest rise bilaterally. Cardio:?RRR Abdomen: S NT ND. Musculoskeletal:? Muscle strength and tone are equal within normal limits, no deformity. Negative tinel testing on R wrist. No lateral epicondyle tenderness, minimal medial epicondyle tenderness. Extremities: No edema or joint effusions. No cyanosis or clubbing. Skin:? Pale,? Warm to touch,dry and intact without rashes, ulcerations or petechiae.? Neuro:? Alert and orientated x3,? sensation to touch intact in all extremities, no gross deficits noted of cranial nerves. Psych:? Patient has a well-kept appearance, appropriate affect, mental status attitude thought context and judgment are appropriate for age. Objective Labs 09/21/24 04:43 09/21/24 04:43 Labs: Laboratory Results - last 24 hr 09/21/24 04:43 WBC 7.8 RBC 4.65 Hgb 13.9 Hct 41.5 MCV 89.2 MCH 30.0 MCHC 33.6 RDW 13.3 Plt Count 160 Neut % (Auto) 55.2 Lymph % (Auto) 34.4 [place] % (Auto) 8.3 Eos % (Auto) 1.8 L Baso % (Auto) 0.3 Neut # (Auto) 4300 Lymph # (Auto) 2700 [place] # (Auto) 600 Eos # (Auto) 100 Baso # (Auto) 0 Sodium 136 L Potassium 4.1 Chloride 107 Carbon Dioxide 23 BUN 18 Creatinine 0.84 Estimated GFR > 60 BUN/Creatinine Ratio 21.4 Glucose 101 Hemoglobin A1c 5.4 Calcium 9.4 Magnesium 1.8 Triglycerides 72 Cholesterol 215 H LDL Cholesterol, Calc 162 H HDL Cholesterol 39 L TSH 3.02 PFSH Medical History (Updated 09/21/24 @ 18:01 by Elvia An PA-C) Trigger finger of both hands Surgical History (Updated 09/20/24 @ 21:53 by Roshan De La Cruz DO) H/O hand surgery Social History household members: none Smoking Status: Current every day smoker Discharge Plan Discharge Plan Patient Disposition: Home Provider Discharge Comment: You were admitted to the hospital with a stroke. MRI showed this has happened before as well, possibly recently. There is a high suspicion for a heart arrythmia called atrial fibrillation which was not noted while you were here. Recommend PCP follow up for a holter monitor for further evaluation. Discharge orders & Medications Prescriptions: New aspirin 81 mg Tablet,Delayed Release (Dr/Ec) 81 mg PO DAILY 21 Days Qty: 21 0RF clopidogrel 75 mg Tablet 75 mg PO DAILY 90 Days Qty: 90 0RF atorvastatin 40 mg tablet 40 mg PO BEDTIME 90 Days Qty: 90 0RF Follow up/Referrals: Elvia An PA-C [Primary Care Provider] - Diet/Activity/Treatments Diet: Diet as Tolerated and Regular Activity: As tolerated no restrictions Visit Report/Discharge Packet Instructions: DI for Stroke-Ischemic, Atorvastatin, Clopidogrel, Aspirin Stand Alone Forms: Patient Portal/API, Stroke Signs & Symptoms Discharge Data Primary Care Provider: Elvia An Attending Provider: Roshan De La Cruz Admit Date/Time: 09/20/24 16:42
--- NOTE | 2024-09-21 16:42 | DI.MRI.S_ITS ---
PROCEDURE: MR HEAD/BRAIN WO CON INDICATIONS: cva r/o, R hand numbness TECHNIQUE: Non-contrast axial T1 spin echo, axial T2 fast spin echo, sagittal and axial FLAIR, coronal T2 fast spin echo, axial gradient echo, axial diffusion and ADC through the brain. COMPARISON: [facility], CT, CT HEAD/BRAIN WO CON, 09/20/2024, 10:57. FINDINGS: Image quality: Excellent. CSF spaces: Ventricles appear symmetric in size and shape. Basal cisterns are patent. No extra-axial fluid collections. Brain: Small areas of restricted diffusion within the posterior left frontal lobe and left parietal lobe, largest measuring 14 x 5 millimeters, consistent with acute infarct with associated edema. Large area of increased signal on DWI within the right frontal lobe with some areas of mildly decreased signal on ADC. There is associated T2/FLAIR hyperintense signal in this region. Findings likely represent subacute infarct. No intracranial bleeds or mass effects. There is cerebral volume loss for age. There are periventricular and deep white matter chronic small vessel ischemic changes. Brainstem appears normal. No chronic ischemic insults. Normal intravascular flow voids are present. Skull and face: Calvarial bone marrow is normal in signal. Orbits are normal. Sinuses: Sinuses and mastoids are clear. IMPRESSION: Likely subacute infarct within the right frontal lobe. Recommend follow-up MRI brain with and without contrast in 30 days to exclude underlying neoplasm. Areas of acute infarct within the posterior left frontal and left parietal lobes. Findings likely represent embolic source. Dictated by: Boris Pina M.D. on 09/21/2024 at 10:07 Approved by: Boris Pina M.D. on 09/21/2024 at 10:13
== END 2024-09-21 15:00 | disposition home or self-care (01) ==
LOC: ED 15:06 → AC 16:43
PROVIDERS: Admitting Provider Internal Medicine; Emergency Provider Emergency Medicine; PCP Physician Assistant; Visit Provider Internal Medicine
DX: I63.9 Cerebral infarction, unspecified (principal); F17.210 Nicotine dependence, cigarettes, uncomplicated; R29.701 NIHSS score 1
CPT/HCPCS: 36415; 70450; 70496; 70498; 70551; 71045; 80048; 80053; 80061; 80305; 81003; 81015; 82550; 82962; 83036; 83735; 84443; 84484; 85025; 85610; 85730; 87077; 87086; 87186; 93005; 93306; 99284; 99285; G0378; Q9967